=== PATIENT | male | born 1990 | race Caucasian/White ===

== ENCOUNTER 2023-11-30 22:15 | Emergency (ER) | payer MEDICAID, SELFPAY ==
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
[2023-11-30 22:44] VITALS: BP 160/93; PULSE 82; RESP 16; TEMP 36.9; O2SAT 99; BMI 27.3
[2023-11-30] MEDS: AMOXICILLIN/CLAVULANATE POTASSIUM 875/125MG TABLET 1 EACH PO (23:03)
[2023-11-30] MEDS: ACETAMINOPHEN 500MG TAB 1000 MG PO (23:03)
[2023-11-30] MEDS: LIDOCAINE 2% VISCOUS SOL 15ML UDC 15 ML PO (23:46)
[2023-11-30 23:47] VITALS: BP 136/81; PULSE 76; RESP 16; TEMP 36.7; O2SAT 98
== END 2023-11-30 23:50 | disposition home or self-care (01) ==
PROVIDERS: Emergency Provider Emergency Medicine
DX: M79.642 Pain in left hand (principal); G50.1 Atypical facial pain; F17.200 Nicotine dependence, unspecified, uncomplicated; W22.09XA Striking against other stationary object, initial encounter
CPT/HCPCS: 73130; 96372; 99283